=== PATIENT | male | born 1990 | race Caucasian/White ===

== ENCOUNTER 2016-07-18 17:03 | Emergency (ER) | payer OTHER ==
[~2016-07-18] VITALS: Wt 79.4 kg
[~2016-07-18 17:03] MED LIST: ALLERGY10 M1 PO; AMOXICILLIN500 M2 PO; AMOXICILLIN500 MG PO; ANAPROX DS550 MG PO; ANTIBIOTIC O500 U/GM TP; BACTRIM DS 8001 TA1 PO; CATAFLAM50 MG PO; CIPRO500 MG PO; DOXYCYCLINE MO100 MG PO; DRAMAMINE50 M1 PO; EES400 MG PO; KEFLEX500 MG PO; LEVOFLOXACIN500 MG PO; MOTRIN800 MG PO; Motrin,Rufen800 MG PO; NAPROSYN500 MG PO; NKHM; VIBRAMYCIN100 MG PO; ZOFRAN ODT4 MG SL
[2016-07-18] MEDS ORDERED: CIPRO500 MG PO (17:49)
== END 2016-07-18 18:47 | disposition home or self-care (01) ==
LOC: ED 17:03
DX: S91.331A Puncture wound without foreign body, right foot, initial encounter (principal); Z79.899 Other long term (current) drug therapy; W22.8XXA Striking against or struck by other objects, initial encounter; Y93.89 Activity, other specified; Y92.89 Other specified places as the place of occurrence of the external cause; Y99.8 Other external cause status

== ENCOUNTER 2017-10-14 22:14 | Emergency (ER) | payer OTHER ==
[~2017-10-14] VITALS: Ht 187.9 cm; Wt 77.1 kg
== END 2017-10-15 01:11 | disposition home or self-care (01) ==
LOC: ED 22:14
DX: S90.31XA Contusion of right foot, initial encounter (principal); Z79.899 Other long term (current) drug therapy; W20.8XXA Other cause of strike by thrown, projected or falling object, initial encounter; Y93.89 Activity, other specified; Y92.89 Other specified places as the place of occurrence of the external cause; Y99.9 Unspecified external cause status

== ENCOUNTER 2020-11-05 20:32 | Emergency (ER) | payer BC, OTHER ==
[~2020-11-05] VITALS: Ht 187.9 cm; Wt 79.4 kg
[~2020-11-05 20:32] MED LIST changes: +ANUSOL-HC25 MG R; +COLACE100 MG PO
[2020-11-05] MEDS ORDERED: PREDNISONE20 M1 PO (23:03)
== END 2020-11-06 00:24 | disposition home or self-care (01) ==
LOC: ED 20:32
DX: T63.441A Toxic effect of venom of bees, accidental (unintentional), initial encounter (principal); Z79.899 Other long term (current) drug therapy; Z91.030 Bee allergy status; Y92.89 Other specified places as the place of occurrence of the external cause

== ENCOUNTER 2021-08-09 17:51 | Emergency (ER) | payer BC, OTHER ==
[~2021-08-09] VITALS: Wt 77.1 kg
[~2021-08-09 17:51] MED LIST changes: +PREDNISONE20 M1 PO
[2021-08-09] MEDS ORDERED: METHOCARBAMOL750 M1 PO (19:41)
[2021-08-09] MEDS ORDERED: NAPROXEN250 MG PO (19:41)
== END 2021-08-09 19:49 | disposition home or self-care (01) ==
LOC: ED 17:51
DX: S29.012A Strain of muscle and tendon of back wall of thorax, initial encounter (principal); M25.512 Pain in left shoulder; X50.0XXA Overexertion from strenuous movement or load, initial encounter; Y93.89 Activity, other specified; Y92.89 Other specified places as the place of occurrence of the external cause; Y99.8 Other external cause status